=== PATIENT | male | born 1955 | race Caucasian/White ===

== ENCOUNTER 2025-05-26 17:23 | Emergency (ER) | payer OTHER, SELFPAY ==
[2025-05-26 17:26] VITALS: BP 168/69
[2025-05-26 17:29] LABS: Glucose - Point of Care 184 mg/dl (70-99)
[2025-05-26 17:31] VITALS: BP 141/64
[2025-05-26] MEDS: NSS 1000 IV (17:42)
[2025-05-26] MEDS: ZOFRAN 4 MG IV (17:42)
[2025-05-26 17:47] LABS: Hematocrit 41.5 % (39.0-52.0); Hemoglobin 14.0 g/dL (13.0-18.0); Mean Corp Hgb Conc. 33.7 g/dL (33.0-37.0); Mean Corpuscular Volume 89.1 fL (80.0-94.0); Nucleated Red Blood Cells % 0 % (-); Platelet Count 291 10^3/uL (130-400); Red Cell Dist. Width 12.1 % (11.5-14.5)
[2025-05-26 18:00] VITALS: BP 130/56
[2025-05-26 18:13] LABS: ALT (SGPT) 24 U/L (0-50); AST (SGOT) 28 U/L (17-59); Albumin 4.8 g/dl (3.5-5.0); Alkaline Phosphatase 54 U/L (38-126); Blood Urea Nitrogen 24 mg/dl (9-20); Calcium 10.5 mg/dl (8.4-10.2); Carbon Dioxide 24 mmol/L (22-30); Chloride 102 mmol/L (98-107); Glucose 191 mg/dl (70-99); Lipase 144 U/L (23-300); Potassium 3.0 mmol/L (3.5-5.1); Sodium 139 mmol/L (135-145); Total Protein 7.3 g/dl (6.3-8.2); eGFR > 60.00
[2025-05-26 18:14] LABS: Troponin I < 0.012 ng/ml
[2025-05-26] MEDS: VALIUM INJECTION 5 MG IV (18:47)
[2025-05-26] MEDS: REGLAN 10 MG IV (18:48)
[2025-05-26 19:00] VITALS: BP 115/58
[2025-05-26 20:00] VITALS: BP 134/73
[2025-05-26 21:00] VITALS: BP 133/73
[2025-05-26] MEDS: KLOR-CON 40 MEQ PO (21:16)
[2025-05-26 21:56] LABS: Urine Character Clear (Clear)
[2025-05-26] MEDS: ZOFRAN ODT (ORALLY DISINTEGRATING) 4 MG PO (21:59)
[2025-05-26 22:14] LABS: Urine Red Blood Cell 0-2 /HPF (0-2); Urine Squamous Cell 0-2 /LPF (Few); Urine White Cell 0-2 /HPF (0-5)
--- NOTE | 2025-05-26 23:43 | ED.GENMED ---
History of Present Illness
General
Chief Complaint: Abdominal Symptoms
Source: spouse
Exam Limitations: none
Time Seen by Provider: 05/26/25 17:30
Nursing documentation reviewed up to this point in time: agreed with
History of Present Illness
History of Present Illness:
Patient to ED for sudden onset of weakness, dizziness, n/v. Wfe states they were visiting with family, playing outside with grandchildren when symptoms occurred. Denies any headache, cp/pressue, abdominal pain. No fever/chills, recent illness.
No prior history of same.
Past History
Past History
ED Past Medical History: Cancer (prostate), HTN, Hypercholesterolemia and Other (vertigo)
Review of Systems
Review of Systems
Allergies reviewed?: Yes
All Other Systems: ROS reviewed and negative except as documented in HPI and ROS
Constitutional: Reports no symptoms
EENT: Reports no symptoms
Respiratory: Reports no symptoms
Cardiac: Reports no symptoms
ABD/GI: Reports nausea and vomiting
: Reports no symptoms
Musculoskeletal: Reports no symptoms
Skin: Reports no symptoms
Neurological: Reports dizzy and weakness
Psychiatric: Reports no symptoms
Phy Exam
General Physical Exam
General Presentation: moderate distress
General age: appears stated age
General Skin: warm and dry
General Habitus: normal
General Mental: alert
Cardiovascular Exam
Cardiovascular Exam: regular rate/rhythm and no edema
Pulmonary Exam
Pulmonary Exam: lungs clear and no respiratory distress
Gastrointestinal Exam
Gastrointestinal Exam: normal bowel sounds, non tender, soft, no organomegaly, non distended and no cva tenderness
Neurological Exam
Neurological Exam: alert, oriented x3, CN II-XII intact, no motor deficits, no sensory deficits and speech normal
Musculoskeletal Exam
Musculoskeletal Exam: full ROM and neuro vasc intact
Skin Exam
Skin Exam: normal color, warm/dry and no rash
Psychiatric Exam
Psychiatric Exam: normal mood/affect
Course
Orders/Labs/Results
Orders:
Orders
05/26/25 17:30
Ondansetron Injectable [Zofran] 4 mg IV NOW STA
05/26/25 17:31
Electrocardiogram (*1) Urgent
Reason for Study: Syncope
EKG- Treatment ONCE
0.9% Sodium Chloride 1000 ml [Nss] 1,000 ml IV BOLUS
05/26/25 17:40
Complete Blood Count/With Diff Urgent
Comprehensive Metabolic Panel Urgent
Lipase Urgent
Troponin I Urgent
05/26/25 18:40
Metoclopramide [Reglan] 10 mg IV NOW STA
diazePAM [Valium Injection] 5 mg IV NOW STA
05/26/25 18:41
CT Head W/o Iv Contrast Urgent
Comment:
Reason For Exam: altered mentas status
05/26/25 19:00
CR Chest - 2 Views Urgent
Comment:
Reason For Exam: SOB
05/26/25 19:16
CT Abd/pelvis W Iv Cont Urgent
Comment:
Reason For Exam: vomiting
05/26/25 21:01
Potassium Chloride Powder [Klor-Con] 40 meq PO NOW STA
05/26/25 21:45
Urinalysis Reflex To Culture Urgent
Date Specimen was Collected: 05/26/25
Time Specimen was Collected: 17:33
Urine Microscopic Reflex Cult Urgent
05/26/25 21:57
Ondansetron Orally Disint [Zofran Odt (Orally Disintegrating)] 4 mg PO NOW STA
Abnormal Lab Results
05/26/25 05/26/25 05/26/25
17:28 17:40 21:45
RBC 4.66 L 10^6/uL
(4.70-6.10)
Absolute Monos (auto) 0.8 H 10^3/uL
(0.1-0.6)
Potassium 3.0 L mmol/L
(3.5-5.1)
BUN 24 H mg/dl
(9-20)
Glucose 191 H mg/dl
(70-99)
Calcium 10.5 H mg/dl
(8.4-10.2)
Urine Albumin (Reflex) 2+ A
(Neg - Trace)
POC Glucose 184 H mg/dl
(70-99)
05/26/25 17:40
05/26/25 17:40
Vital Signs
Initial and Last Documented VS:
Initial Vital Signs
Temp Pulse Resp BP Pulse Ox
97.5 F 90 15 168/69 94
05/26/25 17:26 05/26/25 17:26 05/26/25 17:26 05/26/25 17:26 05/26/25 17:26
Last Documented Vital Signs
Temp Pulse Resp BP Pulse Ox
97.5 F 71 11 133/73 95
05/26/25 17:26 05/26/25 21:30 05/26/25 21:30 05/26/25 21:00 05/26/25 23:47
*Radiology
Radiology exam reviewed: radiology read reviewed
*Pulse Oximetry
SaO2: 95
Oxygen Mode of Delivery: Room air
Patient hypoxic: no
*Critical Care Note
Total Time (30-74mins, 75-104mins- exclusive of procedures): Not Applicable
Update Note
Update Note:
Patient to ED with severe dizziness, n/v, weakness that started just [employer]. No recent illness. Admits to history of vertigo, typically controlled with meclizine. Given IVF, valium and zofran in ED with complete resolution of symptoms. Labs, CT
reveiwed. K 3.0, no other acute findings. Given 40meq KCL in ED and will continue 20meq daily x 2 days at home. WIll have K rechecked this week. VSS, he remains afebrile. Will discharge home and he will followu p with PCP on Wednesday. Given
instructions on s/s to return to ED and he is agreeable to plan.
ED Attending Note
-
Portions of this chart may have been created with voice recognition software.� Occasional wrong word or��sound alike� substitutions may have occurred due to the inherent limitations of voice recognition software.
Discharge Plan
Departure
Patient Disposition: Home (Routine Discharge)
Date of Disposition: 05/26/25
Time of Disposition: 21:51
Patient with high blood pressure during this ER visit?: No
Condition: Good
Covid-19: Not Applicable
Discharge Problem:
Vertigo
Instructions: Clear Liquid Diet, Nausea and Vomiting, Adult (DC), Vertigo - ED (DC)
Prescriptions:
New
meclizine 25 mg tablet
25 mg PO TID PRN (Reason: dizziness) Qty: 12 0RF
potassium chloride 20 mEq packet
20 meq PO DAILY Qty: 2 0RF
ondansetron 4 mg tablet,disintegrating
4 mg PO Q8H PRN (Reason: nausea and vomiting) 4 Days Qty: 12 0RF
Referrals:
Gerardo De Oliveira DO [Family Provider, Family Practice] - Follow up in 2-3 days
Activity Restrictions/Additional Instructions:
Return to the emergency department immediately for any changes in/worsening of your symptoms
Interventions
Interventions:
*Risk Screen - Suicide Last Done: 05/26/25 17:26
*General Assessment Last Done: 05/26/25 17:26
*Neglect/Abuse Screening Last Done: 05/26/25 17:26
*ED COVID-19 Vaccine History Last Done: 05/26/25 17:26
*Nursing Disposition Last Done: 05/26/25 21:52
IP-Apdryq-Ysphvftsra Assessment Last Done: 05/26/25 17:46
Discharge Date and Time
Discharge Date/Time: 05/26/25 22:13
Print Language: KOREAN
== END 2025-05-26 22:13 | disposition home or self-care (01) ==
LOC: EMR 17:23
PROVIDERS: Nurse Practitioner; EMERGENCY PHYSICIAN Emergency Medicine; FAMILY PHYSICIAN Family Medicine Geriatric Medicine
DX: R42 Dizziness and giddiness (principal); I10 Essential (primary) hypertension; E78.00 Pure hypercholesterolemia, unspecified; Z85.46 Personal history of malignant neoplasm of prostate
CPT/HCPCS: 99284; 96374; 96375 ×2; 70450; 71046; 74177; 80053; 81003; 81015; 82962; 83690; 84484; 85025; 93005; Q9967